=== PATIENT | female | born 1990 | race African-American/Black ===

== ENCOUNTER → 2017-09-14 | Emergency (ER) | payer SELFPAY ==
[~2017-09-14] VITALS: Ht 172.7 cm; Wt 104.3 kg
[~2017-09-14] MED LIST: KETOROLAC TROMETHAMINE 30 MG/ML VIAL IV ONE; ORTHO TRI-CYCL1 EAC1 PO; SODIUM CHLORIDE 0.9% 1000ML 1,000 ML ONE
--- OUTSIDE RECORDS SUMMARY | 2017-09-14 13:23 | XMS REPORT | Clinical Summary ---
Author Author [facility] Address Unknown Phone Unavailable Care Team Providers Care Magnetic Prospector Name Role Phone PCP Unavailable Allergies No Known Allergies Current Medications Prescription Sig. Disp. Refills Start End Date Status Date doxycycline (VIBRAMYCIN) Take 1 capsule (100 mg 20 capsule 0 02/13/20 02/23/20 100 MG capsule total) by mouth 2 (two) 17 17 times daily for 10 days. Active Problems Not on file Encounters Date Type Specialty Care Team Description 02/12/2017 Emergency Emergency Medicine Socrates Joseph DO PID ( pelvic inflammatory disease) (Primary Dx) after 09/13/2016 Family History Medical History Relation Name Comments Hypertension Mother Relation Name Status Comments Mother Social History Tobacco Use Types Packs/Day Years Used Date Never Smoker Smokeless Tobacco: Never Used Alcohol Use Drinks/Week oz/Week Comments Yes social Sex Assigned at Date Recorded Not on file Last Filed Vital Signs Vital Sign Reading Time Taken Blood Pressure 125/91 02/12/2017 4:38 PM CDT Pulse 80 02/12/2017 4:38 PM CDT Temperature 36.8 C (98.2 F) 02/12/2017 3:10 PM CDT Respiratory Rate 18 02/12/2017 4:38 PM CDT Oxygen Saturation 97% 02/12/2017 4:38 PM CDT Inhaled Oxygen - - Concentration Weight 109.3 kg (241 lb) 02/12/2017 3:10 PM CDT Height 172.7 cm (5' 8") 02/12/2017 3:10 PM CDT Body Mass Index 36.64 02/12/2017 3:10 PM CDT Plan of Treatment Not on file Results * Urinalysis Microscopic Only (02/12/2017 3:42 PM) Component Value Ref Range RBC, UA <5 /HPF WBC, UA <5 /HPF Bacteria, UA Rare Mucus Few SQUAMOUS EPITHELIAL <5 /HPF Specimen Performing Laboratory Urine - Urine, [facility], [facility], [facility] LABORATORY [address] [place] [phone] * Urinalysis with Microscopic If Indicated - Clean Catch (02/12/2017 3:42 PM) Component Value Ref Range Color, UA Yellow Clarity, UA Clear Specific [place], UA 1.015 1.001 - 1.035 pH, UA 5.5 5.0 - 8.0 Protein, UA Negative Negative Glucose, UA Negative Negative Ketones, UA Negative Negative Bilirubin, UA Negative Negative Blood, UA Trace (A) Negative Nitrite, UA Negative Negative Leukocytes, UA Negative Negative Urobilinogen, UA 0.2 0.2 - 1.0 mg/dL Specimen Source Specimen Performing Laboratory Urine - Urine, [facility], [facility], [facility] LABORATORY [address] [place] [phone] * screen, urine (02/12/2017 3:42 PM) Component Value Ref Range Preg Test, Ur Negative Specimen Performing Laboratory Urine - Urine, [facility], [facility], [facility] LABORATORY [address] [place] [phone] after 09/13/2016
--- OUTSIDE RECORDS SUMMARY | 2017-09-14 13:23 | XMS REPORT ---
Author Author [facility] Address Unknown Phone Unavailable Care Team Providers Care Office Services Assistant Name Role Phone RIKKI JENKINS Unavailable Unavailable ANTONIO AGUIRRE Unavailable Unavailable Problems This patient has no known problems. Allergies, Adverse Reactions, Alerts This patient has no known allergies or adverse reactions. Medications This patient has no known medications. Results Test Description Test Time Test Comments Text Results Atomic Results Result Comments URINALYSIS WITH MICROSCOPIC IF INDICATED 2017-02-12 15:54:00 COLOR (BEAKER) (test tdrw=030) Yellow CLARITY (BEAKER) (test izel=713) Clear SPECIFIC GRAVITY UA (BEAKER) (test qlun=649) 1.015 1.001-1.035 PH UA (BEAKER) (test wiez=495) 5.5 5.0-8.0 PROTEIN UA (BEAKER) (test fyyo=415) Negative Negative GLUCOSE UA (BEAKER) (test diql=320) Negative Negative KETONES UA (BEAKER) (test sjip=769) Negative Negative BILIRUBIN UA (BEAKER) (test gpaw=581) Negative Negative BLOOD UA (BEAKER) (test nxqg=219) Trace Negative NITRITE UA (BEAKER) (test akmu=779) Negative Negative LEUKOCYTE ESTERASE UA (BEAKER) (test qixe=900) Negative Negative UROBILINOGEN UA (BEAKER) (test ycye=648) 0.2 mg/dL 0.2-1.0 SOURCE(BEAKER) (test hiqj=3568) URINALYSIS [id number] 15:54:00* Test Item Value Reference Range Comments RBC UA-MANUAL (BEAKER) (test lbyj=7736) <5 /HPF WBC UA-MANUAL (BEAKER) (test evdq=2309) <5 /HPF BACTERIA (BEAKER) (test tiiv=109) Rare MUCUS (BEAKER) (test drsh=6019) Few SQUAMOUS EPITHELIAL MANUAL (BEAKER) (test afui=8154) <5 /HPF SCREEN, [id number] 15:53:00* Test Item Value Reference Range Comments TEST URINE (BEAKER) (test odwn=581) Negative SCREEN, [id number] 12:29:00* Test Item Value Reference Range Comments TEST URINE (BEAKER) (test qdxg=980) Negative URINALYSIS W/ [id number] 12:28:00* Test Item Value Reference Range Comments COLOR (BEAKER) (test ewqg=412) Yellow CLARITY (BEAKER) (test tdjf=035) Clear SPECIFIC GRAVITY UA (BEAKER) (test nzas=832) 1.015 1.001-1.035 PH UA (BEAKER) (test naew=031) 6.0 5.0-8.0 PROTEIN UA (BEAKER) (test izkl=838) Negative Negative GLUCOSE UA (BEAKER) (test nucp=138) Negative Negative KETONES UA (BEAKER) (test flqi=516) Negative Negative BILIRUBIN UA (BEAKER) (test gvgp=472) Negative Negative BLOOD UA (BEAKER) (test wpul=479) Trace Negative NITRITE UA (BEAKER) (test dqdz=799) Negative Negative LEUKOCYTE ESTERASE UA (BEAKER) (test envh=119) Negative Negative UROBILINOGEN UA (BEAKER) (test jspl=638) 0.2 mg/dL 0.2-1.0 BACTERIA (BEAKER) (test mldj=906) Occasional RBC UA-MANUAL (BEAKER) (test klkk=2024) <5 /HPF WBC UA-MANUAL (BEAKER) (test apqs=8082) <5 /HPF SQUAMOUS EPITHELIAL MANUAL (BEAKER) (test qfpa=7421) <5 /HPF SOURCE(BEAKER) (test xhoo=6760)
[2017-09-14 17:51] VITALS: BP 136/78
== END | disposition home or self-care (01) ==
LOC: FSED 13:21
DX: N93.9 Abnormal uterine and vaginal bleeding, unspecified (principal); N92.1 Excessive and frequent menstruation with irregular cycle; R11.0 Nausea
CPT/HCPCS: 99283; J1885; J7030

== ENCOUNTER 2018-01-06 23:31 | Emergency (ER) | payer OTHER ==
[~2018-01-06] VITALS: Ht 172.7 cm; Wt 104.3 kg
[~2018-01-06 23:31] MED LIST changes: -KETOROLAC TROMETHAMINE 30 MG/ML VIAL IV ONE; -SODIUM CHLORIDE 0.9% 1000ML 1,000 ML ONE
[2018-01-06] MEDS ORDERED: SODIUM CHLORIDE 0.9% 1000ML 1,000 ML IV STA (23:57)
[2018-01-07 00:15] LABS: BASOPHILS % 0.2 % (0.0-1.0); EOSINOPHILS # (AUTO) 0.2 (0.0-0.4); EOSINOPHILS % 1.5 % (0.0-6.0); HEMATOCRIT 34.5 % (34.2-44.1); LYMPHOCYTES # (AUTO) 4.7 (1.0-3.2); LYMPHOCYTES % 38.5 % (18.0-39.1); MEAN CORPUSCULAR HEMOGLOBIN 25.3 pg (28-32); MEAN CORPUSCULAR HGB CONC 31.9 g/dL (31-35); MEAN CORPUSCULAR VOLUME 79.3 fL (81-99); MONOCYTES # (AUTO) 0.5 (0.2-0.8); MONOCYTES % 3.9 % (4.4-11.3); NEUTROPHILS # (AUTO) 6.8 (2.1-6.9); NEUTROPHILS % 55.7 % (38.7-80.0); PLATELET COUNT 362 x10e3/uL (140-360); RED BLOOD COUNT 4.35 x10e6/uL (3.6-5.1); RED CELL DISTRIBUTION WIDTH 14.6 % (11.7-14.4)
[2018-01-07 00:23] LABS: CLARITY,URINE CLEAR (CLEAR); COLOR,URINE YELLOW (YELLOW)
[2018-01-07 00:24] LABS: BILIRUBIN,URINE NEGATIVE (NEGATIVE); KETONES,URINE NEGATIVE (NEGATIVE); LEUKOCYTE ESTERASE ,URINE NEGATIVE (NEGATIVE); NITRITE,URINE NEGATIVE (NEGATIVE); PROTEIN,URINE DIPSTICK NEGATIVE (NEGATIVE); URINE UROBILINOGEN 0.2 mg/dL (0.2 - 1)
[2018-01-07 00:27] LABS: INR 1.1; PARTIAL THROMBOPLASTIN TIME 29.9 seconds (23.8-35.5); PROTHROMBIN TIME 13.4 seconds (11.9-14.5)
[2018-01-07 00:36] LABS: ALANINE AMINOTRANSFERASE 14 IU/L (0-55); ALBUMIN 3.5 g/dL (3.5-5.0); ALBUMIN/GLOBULIN RATIO 0.8 (0.8-2.0); ALKALINE PHOSPHATASE 93 IU/L (40-150); ANION GAP 15.8 mmol/L (8-16); BACTERIA,URINE RARE /HPF; BLOOD UREA NITROGEN 7 mg/dL (7-26); BUN/CREATININE RATIO 9 (6-25); CALCIUM 8.4 mg/dL (8.4-10.2); CARBON DIOXIDE 23 mmol/L (22-29); CHLORIDE 105 mmol/L (98-107); CREATININE, SERUM 0.82 mg/dL (0.57-1.11); EPITHELIAL CELLS,URINE FEW /LPF; EST GLOMERULAR FILTRATION RATE > 60 ML/MIN (60-); GLUCOSE 88 mg/dL (74-118); POTASSIUM 3.8 mmol/L (3.5-5.1); SODIUM 140 mmol/L (136-145); WBC,URINE (MAN) 0-5 /HPF (0-5)
== END 2018-01-07 01:05 | disposition home or self-care (01) ==
LOC: ER 23:31
DX: R10.31 Right lower quadrant pain (principal)
CPT/HCPCS: 36415; 80053; 81001; 82948; 84702; 85025; 85610; 85730; 86900; 87086; 99283; J7030